=== PATIENT | male | born 1975 | race Caucasian/White ===

== ENCOUNTER 2016-05-27 23:17 | Emergency (ER) | payer MEDICARE, MEDICAID ==
[2016-05-27] MEDS ORDERED: CODEINE PHOSPHATE/GUAIFENESIN 5 ML UDC PO ONE (23:25)
[2016-05-27] MEDS ORDERED: ALBUTEROL SULFATE/IPRATROPIUM 3 ML NEBU IH ONE ×2 (23:26→23:42)
[2016-05-27] MEDS ORDERED: CODEINE PHOSPHATE/GUAIFENESIN 5 ML UDC ONE (23:42)
--- OUTSIDE RECORDS SUMMARY | 2016-05-28 00:18 | XMS REPORT | Summary of Care ---
:1975 Author Organization [facility] Care Team Providers Name Role Phone No Family Phy, Physician Primary Care Physician Unavailable Encounter 10/22/15 - 10/28/15 [facility] [address] [facility] Shelby [place]ountain, [place] [address]- Discharge Disposition: Home Attending Physician: Amor Calle Admitting Physician: Iza LANDERS, Zenon Huston Referring Physician: Self, Referral Vital Signs Most recent to oldest 1 2 3 [Reference Range]: Orientation Oriented to Person, Place, Time Oriented to Person, Place, Time Oriented to Person, Place, Time (10/25/15 12:10 PM) (10/25/15 9:41 AM) (10/22/15 2:53 PM) Level of Consciousness Alert (10/22/15 10:43 AM) Sleep Quality Sleeping quielty with easy respirations Sleeping quielty with easy respirations Sleeping quielty with easy respirations (10/25/15 3:09 AM) (10/23/15 4:49 AM) (10/22/15 8:19 PM) Sleep, Number of Hrs 6 8 2 (10/25/15 3:09 AM) (10/23/15 4:49 AM) (10/22/15 8:19 PM) Sleep Comment reports that he slept well reports he thought he slept but was told he did not none (10/24/15 1:30 PM) (10/23/15 12:50 PM) (10/23/15 4:49 AM) Respiratory Rate 20 brpm 20 brpm 20 brpm [12-30 brpm] (10/27/15 9:55 PM) (10/27/15 9:46 PM) (10/27/15 4:22 PM) Blood Pressure 121/80mm hg 139/88mm hg 127/83mm hg [(reference range (10/27/15 4:22 PM) (10/27/15 12:08 PM) (10/26/15 9:32 AM) unavailable)/61-99 mm hg] Temperature F 97.9 degF 98.3 degF 99.1 degF [97.7-99.9 degF] (10/27/15 4:22 PM) (10/25/15 4:49 PM) (10/22/15 2:53 PM) Height 175.3 cm 175.3 cm 175.3 cm (10/22/15 2:53 PM) (10/22/15 10:43 AM) (10/22/15 10:35 AM) Weight 113.636 kg 113.636 kg 113.636 kg (10/22/15 2:53 PM) (10/22/15 10:43 AM) (10/22/15 10:35 AM) Problem List Condition Effective Dates Status Health Status Informant Arthritis(Confirmed) Active Allergies, Adverse Reactions, Alerts Substance Reaction Severity Status propofol Nausea and vomiting Active Medications Ambien 10 mg, PO, HS (At Bedtime), PRN PRN Reasons Stated in Comments Start Date: 10/22/15 Status: Orderedbenztropine 1 mg oral tablet 1 mg=1 Tab, PO, [id number], PRN PRN EPS Start Date: 03/16/15 Stop Date: 10/22/15 Status: CompletedbuPROPion 150 mg/24 hours (XL) oral tablet, extended release 150 mg=1 Tab, PO, Daily (Once Daily), X 30 day(s), # 30 Tab, Pharmacy: [facility] [id number] Start Date: 10/28/15 Stop Date: 11/27/15 Status: OrderedbuPROPion 300 mg/24 hours (XL) oral tablet, extended release 300 mg=1 Tab, PO, Daily (Once Daily) Start Date: 03/16/15 Stop Date: 10/22/15 Status: Completeddocusate sodium 100 mg oral capsule 100 mg=1 Cap, PO, BID (Twice Daily), PRN PRN as needed for constipation Start Date: 03/16/15 Stop Date: 10/22/15 Status: CompletedInvega Sustenna 156 mg/mL intramuscular suspension, extended release 156 mg, IM, [id number], Patient received on 10/26/2015. Next dose 30 days from this date., # 1 Cassette, Pharmacy: [facility] [id number] Start Date: 10/28/15 Status: OrderedLORazepam 1 mg oral tablet 1 mg=1 Tab, PO, QID (Four Times Daily), PRN PRN as needed for anxiety Start Date: 03/16/15 Status: Orderedmirtazapine 15 mg oral tablet 7.5 mg=0.5 Tab, PO, HS (At Bedtime), X 30 day(s), # 15 Tab, Pharmacy: [facility] [id number] Start Date: 10/28/15 Stop Date: 11/27/15 Status: Orderedmirtazapine 15 mg oral tablet 15 mg=1 Tab, PO, HS (At Bedtime) Start Date: 03/16/15 Stop Date: 10/22/15 Status: Completedpramipexole 1.5 mg oral tablet 1.5 mg=1 Tab, PO, HS (At Bedtime) Start Date: 03/16/15 Stop Date: 10/22/15 Status: CompletedSystane ophthalmic solution 1 Drops, Eyes-Both, TID (Three Times Daily) Start Date: 03/16/15 Stop Date: 10/22/15 Status: CompletedTylenol 325 mg oral tablet 650 mg=2 Tab, PO, [id number], PRN PRN Mild Pain and/or Fever Start Date: 03/16/15 Stop Date: 10/22/15 Status: Completed Results GENERAL CHEMISTRIES Most recent to oldest [Reference Range]: 1 Lot Number [id number] *NA* (10/24/15 11:42 AM) ENDOCRINE CHEMISTRIES Most recent to oldest [Reference Range]: 1 S-TSH [0.45-4.50 International Units/L] 3.44 International Units/L (10/23/15 11:28 AM) DRUGS OF ABUSE Most recent to oldest [Reference Range]: 1 THC [Negative] Negative (10/22/15 10:54 AM) Phencyclidine [Negative] Negative (10/22/15 10:54 AM) Cocaine [Negative] Negative (10/22/15 10:54 AM) Opiates [Negative] Negative (10/22/15 10:54 AM) Amphetamine Screen [Negative] Negative (10/22/15 10:54 AM) Benzodiazepine Screen [Negative] Negative (10/22/15 10:54 AM) Barbiturates [Negative] Negative (10/22/15 10:54 AM) pH - BENJAMIN [5.0-8.0] 7.0 (10/22/15 10:54 AM) Specific [place] - BENJAMIN [1.000-1.030] 1.016 (10/22/15 10:54 AM) SKIN TEST Most recent to oldest [Reference Range]: 1 Date/Time Inject 10/23@11:42 *NA* (10/24/15 11:42 AM) Date/Time Read 7.@14:55 *NA* (10/24/15 11:42 AM) Site/Tech ID left arm/pmb *NA* (10/24/15 11:42 AM) Tech - TB cks *NA* (10/24/15 11:42 AM) Induration TB 0 mm *NA* (10/24/15 11:42 AM) Immunizations No data available for this section Procedures Procedure Date Related Diagnosis Body Site Lip Social History Social History Type Response Alcohol Current, 1-2 times per year Substance Abuse Never Smoking Status Former smoker1 1states he quit smoking 6 months ago. Assessment and Plan Extracted from: Title:Psychiatric screening exam Author:Walter Alonso Date:10/22/15 Impression and Plan Diagnosis bipolar Plan Condition: Unchanged. Disposition: Medically cleared, Discharged: to home. Patient was given the following educational materials: see PSA notes. Follow up with: Primary Care Physician, In: as needed. Counseled: Patient, Regarding diagnosis, Regarding diagnostic results, Regarding treatment plan, Patient indicated understanding of instructions.
--- OUTSIDE RECORDS SUMMARY | 2016-05-28 00:18 | XMS REPORT | Continuity of Care Document ---
:1975 Author Organization [facility] ([facility]) Address [address] [place] [address] Phone [phone] Care Team Providers Name Role Phone Nuria Hodges Primary Care Provider [phone] Source Comments This disclosure is being made pursuant to the Care Everywhere program, applicable federal and state laws, and may not contain all informaitonavailable regarding this patient.[facility] ([facility]) Active Allergies and Adverse Reactions Allergen Noted Date Severity Reactions Comments Paliperidone 08/19/2013 OTHER Propofol 08/19/2013 Nausea & Vomiting Risperidone 08/19/2013 Nausea & Vomiting Current Medications Prescription Sig. Disp. Refills Start Date End Date Status LORazepam 0.5 mg Take 1 Tab by mouth 2 1 Tab 0 01/02/2014 Active tablet times daily as needed. Indications: Agitation LORazepam 2 mg Take 1 Tab by mouth 1 Tab 0 01/02/2014 Active tablet at bedtime as needed. Indications: Agitation nicotine 2 mg gum Take 1 Each by mouth 110 Each 5 01/02/2014 Active every 2 hours as needed for Smoking cessation. Chew gum slowly until it tingles, then park it between the cheek and gum. When tingle disappears, repeat process until most of thetingle disappears. Indications: NICOTINE WITHDRAWAL SYMPTOMS ALPRAZolam 2 mg Take 2 mg by mouth at Active tablet bedtime as needed. traZODone 100 mg Take 100 mg by mouth Active tablet at bedtime. pramipexole 1.5 mg Take 1.5 mg by mouth Active tablet 3 times daily. risperiDONE inject 37.5 mg Active microspheres intramuscularly every (RisperDAL Consta) 14 days. 37.5 mg/2 mL injection omeprazole 20 mg Take 20 mg by mouth Active enteric coated daily. capsule naproxen 500 mg Take 1 tablet (500 mg 30 tablet 0 04/15/2016 Active tablet total) by mouth every 12 hours. lidocaine 2 % jelly Apply topically 2 30 mL 0 04/15/2016 Active times daily as needed. Active Problems Problem Noted Date Tooth pain 04/15/2016 Umbilical hernia 01/05/2014 Overview: Reducible Upper respiratory infection 01/02/2014 Antisocial behavior 11/18/2013 Polysubstance use disorder, severe 11/18/2013 Hip pain, chronic 07/08/2013 Right knee pain 05/13/2013 Overview: Also has left knee pain after falling MIKE (obstructive sleep apnea) 05/13/2013 Hernia 05/13/2013 Parent-child relational problem 03/27/2013 Noncompliance with medications 11/28/2011 Paranoid schizophrenia 08/18/2011 Anxiety 06/12/2011 Heart burn 06/12/2011 Obesity 06/12/2011 Other enthesopathy of ankle and tarsus 08/01/2001 Resolved Problems Problem Noted Date Resolved Date Nausea 12/13/2013 01/05/2014 Schizophrenia 11/28/2011 03/27/2013 Psychiatric disorder 06/12/2011 03/27/2013 JOINT PAIN-L/LEG 08/01/2001 05/13/2013 Most Recent Encounters Date Type Specialty Providers Description 04/26/2016 Telephone Emergency Medicine Miles, Chief Comp: Darlin Mcgill RN Follow-up 04/15/2016 Hospital Encounter Emergency Medicine Chari White MD Dx: Tooth pain (Primary Dx) Social History Tobacco Use Types Packs/Day Years Used Date Former Smoker Cigarettes, Pipe, Cigars 0.25 0.5 Quit: 2013 Smokeless Tobacco: Never Used Tobacco Cessation:Ready to Quit: Yes Comments: Alcohol Use Drinks/Week oz/Week Comments No Last Filed Vital Signs Vital Sign Reading Time Taken Blood Pressure 125/92 04/15/2016 5:42 PM [employer] Pulse 104 04/15/2016 5:42 PM [employer] Temperature 36.9 C (98.4 F) 04/15/2016 5:42 PM [employer] Respiratory Rate 20 04/15/2016 5:42 PM [employer] Height 1.765 m (5' 9.49") 11/18/2013 12:32 AM CDT Weight 122.879 kg (270 lb 14.4 oz) 04/08/2014 8:43 AM [employer] Body Mass Index 39.44 04/08/2014 8:43 AM [employer] Oxygen Saturation 95% 04/15/2016 5:42 PM [employer] Plan of Care Health Maintenance Due Date Last Done Comments Hepatitis B Vaccine (1 of 3 - Primary Series) 1975 Tdap Vaccine 1985 MMR Vaccine 1992 Td Vaccine 1992 Influenza Vaccine: Seasonal (#1) 11/01/2015 Lipid Disorder Screening 05/13/2018 05/13/2013 Results from Last 3 Months Not on file
--- OUTSIDE RECORDS SUMMARY | 2016-05-28 00:19 | XMS REPORT | Summary of Care ---
:1975 Author Organization [facility] Care Team Providers Name Role Phone No Family Phy, Physician Primary Care Physician Unavailable Encounter 01/26/16 - 01/26/16 [facility] [address] [place] [address] Pacheco Kent , Dir. Lab: [phone] [place] [address]- Discharge Disposition: Home Attending Physician: Benjamin Wang DO Admitting Physician: Albina Rivera, Physician Referring Physician: Self, Referral Vital Signs Most recent to oldest [Reference 1 2 Range]: Orientation Oriented to Person, Place, Time (01/26/16 6:19 PM) Level of Consciousness Alert (01/26/16 6:19 PM) Respiratory Rate [12-30 brpm] 15 brpm 15 brpm (01/26/16 6:19 PM) (01/26/16 6:02 PM) Blood Pressure [(reference range 141/99mm hg 141/99mm hg unavailable)/61-99 mm hg] (01/26/16 6:19 PM) (01/26/16 6:02 PM) Temperature F [97.7-99.9 degF] 98.3 degF 98.3 degF (01/26/16 6:19 PM) (01/26/16 6:02 PM) Height 175.3 cm 175.3 cm (01/26/16 6:19 PM) (01/26/16 6:02 PM) Weight 120.455 kg 120.455 kg (01/26/16 6:19 PM) (01/26/16 6:02 PM) Problem List Condition Effective Dates Status Health Status Informant Arthritis(Confirmed) Active Allergies, Adverse Reactions, Alerts Substance Reaction Severity Status propofol Nausea and vomiting Active Medications Ambien 10 mg, PO, HS (At Bedtime), PRN PRN Reasons Stated in Comments Start Date: 10/22/15 Stop Date: 01/26/16 Status: CompletedAmbien 10 mg oral tablet 10 mg=1 Tab, PO, HS (At Bedtime) Start Date: 01/26/16 Status: Orderedbenztropine 1 mg oral tablet 1 mg=1 Tab, PO, [id number], PRN PRN EPS Start Date: 03/16/15 Stop Date: 10/22/15 Status: CompletedbuPROPion 150 mg/24 hours (XL) oral tablet, extended release 150 mg=1 Tab, PO, Daily (Once Daily), X 30 day(s), # 30 Tab, Pharmacy: [facility] [id number] Start Date: 10/28/15 Stop Date: 11/27/15 Status: CompletedbuPROPion 300 mg/24 hours (XL) oral tablet, extended release 300 mg=1 Tab, PO, Daily (Once Daily) Start Date: 03/16/15 Stop Date: 10/22/15 Status: Completeddocusate sodium 100 mg oral capsule 100 mg=1 Cap, PO, BID (Twice Daily), PRN PRN as needed for constipation Start Date: 03/16/15 Stop Date: 10/22/15 Status: CompletedInvega Sustenna 156 mg/mL intramuscular suspension, extended release 156 mg, IM, [id number], Patient received on 10/26/2015. Next dose 30 days from this date., # 1 Cassette, Pharmacy: [facility] [id number] Start Date: 10/28/15 Stop Date: 01/26/16 Status: CompletedLORazepam 1 mg oral tablet 1 mg=1 Tab, PO, QID (Four Times Daily), PRN PRN as needed for anxiety Start Date: 03/16/15 Stop Date: 01/26/16 Status: CompletedLORazepam 1 mg oral tablet 1 mg=1 Tab, PO, QID (Four Times Daily), PRN PRN as needed for anxiety Start Date: 01/26/16 Status: Orderedmirtazapine 15 mg oral tablet 7.5 mg=0.5 Tab, PO, HS (At Bedtime), X 30 day(s), # 15 Tab, Pharmacy: [facility] [id number] Start Date: 10/28/15 Stop Date: 11/27/15 Status: Completedmirtazapine 15 mg oral tablet 15 mg=1 Tab, PO, HS (At Bedtime) Start Date: 03/16/15 Stop Date: 10/22/15 Status: CompletedPercocet (5-325) 1-2 tab, PO, [id number], PRN PRN Moderate Pain Start Date: 01/26/16 Status: Orderedpramipexole 1.5 mg oral tablet 1.5 mg=1 Tab, PO, HS (At Bedtime) Start Date: 03/16/15 Stop Date: 10/22/15 Status: CompletedSystane ophthalmic solution 1 Drops, Eyes-Both, TID (Three Times Daily) Start Date: 03/16/15 Stop Date: 10/22/15 Status: CompletedTylenol 325 mg oral tablet 650 mg=2 Tab, PO, [id number], PRN PRN Mild Pain and/or Fever Start Date: 03/16/15 Stop Date: 10/22/15 Status: Completed Results BASIC CHEMISTRIES Most recent to oldest [Reference Range]: 1 Sodium [134-144 mmol/L] 139 mmol/L (01/26/16 7:30 PM) Potassium [3.5-5.2 mmol/L] 4.1 mmol/L (01/26/16 7:30 PM) Chloride [97-108 mmol/L] 99 mmol/L (01/26/16 7:30 PM) CO2 [18-29 mmol/L] 26 mmol/L (01/26/16 7:30 PM) AGAP [5-19 mmol/L] 14 mmol/L (01/26/16 7:30 PM) Gluc [65-99 mg/dL] 119 mg/dL *HI* (01/26/16 7:30 PM) BUN [6-24 mg/dL] 11 mg/dL (01/26/16 7:30 PM) Creatinine [0.76-1.27 mg/dL] 0.86 mg/dL (01/26/16 7:30 PM) eGFR 104 mL/min/1.73 m2 *NA* (01/26/16 7:30 PM) eGFR Amer 126 mL/min/1.73 m2 *NA* (01/26/16 7:30 PM) Bun/Crea [6-20 Ratio] 13 Ratio (01/26/16 7:30 PM) Calc Osmo [273-304] 278 (01/26/16 7:30 PM) Calcium [8.7-10.2 mg/dL] 9.1 mg/dL (01/26/16 7:30 PM) GENERAL CHEMISTRIES Most recent to oldest [Reference Range]: 1 ALT [0-44 International Units/L] 34 International Units/L (01/26/16 7:30 PM) AST [0-40 International Units/L] 22 International Units/L (01/26/16 7:30 PM) ALP [39-117 Units/L] 78 Units/L (01/26/16 7:30 PM) Bili Total [0.0-1.2 mg/dL] 0.2 mg/dL (01/26/16 7:30 PM) Total Protein [6.0-8.5 gm/dL] 7.1 gm/dL (01/26/16 7:30 PM) Albumin [3.5-5.5 gm/dL] 4.2 gm/dL (01/26/16 7:30 PM) Globulin [2.1-4.0 gm/dL] 2.9 gm/dL (01/26/16 7:30 PM) Alb/Glob 1.4 *NA* (01/26/16 7:30 PM) Amylase Level [28-100 Units/L] 60 Units/L (01/26/16 7:30 PM) Lactic Acid [0.0-2.0 mmol/L] 2.0 mmol/L (01/26/16 7:30 PM) Lipase Level [13-60 Units/L] 45 Units/L (01/26/16 7:30 PM) HEMOGRAM Most recent to oldest [Reference Range]: 1 WBC [4.80-10.80 thous/uL] 8.73 thous/uL (01/26/16 7:30 PM) RBC [4.70-6.10 mill/uL] 4.88 mill/uL (01/26/16 7:30 PM) Hgb [14.0-18.0 gm/dL] 15.8 gm/dL (01/26/16 7:30 PM) Hct [42.0-52.0 %] 44.0 % (01/26/16 7:30 PM) MCV [83.0-97.0 fl] 90.2 fl (01/26/16 7:30 PM) MCH [27.0-31.0 pg] 32.4 pg *HI* (01/26/16 7:30 PM) MCHC [32.3-36.5 gm/dL] 35.9 gm/dL (01/26/16 7:30 PM) Platelet [130-450 thous/uL] 300 thous/uL (01/26/16 7:30 PM) MPV [9.4-12.4 fl] 9.3 fl *LOW* (01/26/16 7:30 PM) RDW-CV [11.5-15.5 %] 12.2 % (01/26/16 7:30 PM) AUTOMATED DIFF Most recent to oldest [Reference Range]: 1 Neut % 65.4 % *NA* (01/26/16 7:30 PM) Lymph % 21.9 % *NA* (01/26/16 7:30 PM) [place] % 9.9 % *NA* (01/26/16 7:30 PM) Eos % 1.6 % *NA* (01/26/16 7:30 PM) Baso % 0.6 % *NA* (01/26/16 7:30 PM) Neut # [1.50-7.50 thous/uL] 5.72 thous/uL (01/26/16 7:30 PM) Lymph # [1.10-3.00 thous/uL] 1.91 thous/uL (01/26/16 7:30 PM) [place] # [0.10-0.75 thous/uL] 0.86 thous/uL *HI* (01/26/16 7:30 PM) Eos # [0.00-0.50 thous/uL] 0.14 thous/uL (01/26/16 7:30 PM) Baso # [0.00-0.10 thous/uL] 0.05 thous/uL (01/26/16 7:30 PM) MANUAL DIFF Most recent to oldest [Reference Range]: 1 IG Pc 0.6 % *NA* (01/26/16 7:30 PM) IG Abs [0.00-0.10 thous/uL] 0.05 thous/uL (01/26/16 7:30 PM) URINALYSIS AUTOMATED Most recent to oldest [Reference Range]: 1 U Color YELLOW *NA* (01/26/16 7:56 PM) U Clarity CLEAR *NA* (01/26/16 7:56 PM) U Spec Grav [1.005-1.030] 1.015 (01/26/16 7:56 PM) U pH [5.0-8.0] 6.5 (01/26/16 7:56 PM) U Gluc [NEGATIVE] NEGATIVE (01/26/16 7:56 PM) U Ketones [NEGATIVE] NEGATIVE (01/26/16 7:56 PM) U Bili [NEGATIVE] NEGATIVE (01/26/16 7:56 PM) U Urobilinogen [0.2 EU/dL] 0.2 EU/dL (01/26/16 7:56 PM) U Protein [NEGATIVE] NEGATIVE (01/26/16 7:56 PM) U Blood [NEGATIVE] NEGATIVE (01/26/16 7:56 PM) U Leuk Est [NEGATIVE] NEGATIVE (01/26/16 7:56 PM) U Nitrite [NEGATIVE] NEGATIVE (01/26/16 7:56 PM) U Add Cult? Cult not needed (01/26/16 7:56 PM) Immunizations No data available for this section Procedures No data available for this section Social History Social History Type Response Alcohol Current, 1-2 times per year Substance Abuse Never Smoking Status Former smoker1 1states he quit smoking 6 months ago. 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 Disposition: Discharged: Time 01/26/2016 21:10:00, to home. Patient was given the following educational materials: Abdominal Pain, Adult, [id number]. Follow up with: Return to Emergency Department (if symptoms worsen), Primary Care Physician, In: 2 day(s). Counseled: Patient, Family, Regarding diagnosis, Regarding diagnostic results, Regarding treatment plan, Patient indicated understanding of instructions. Notes: I have reviewed and agree with the documentation done by the ED Scribe, Discussed with patient about the possibility of abdominal pain being appendicitis. Patient verbalized understanding and said she would return within 12-24 hours if the pain worsened or if a fever started..
--- OUTSIDE RECORDS SUMMARY | 2016-05-28 00:19 | XMS REPORT | Summary of Care ---
:1975 Author Organization [facility] Care Team Providers Name Role Phone No Family Phy, Physician Primary Care Physician Unavailable Encounter 07/20/15 - 07/20/15 [facility] [address] [facility] [address], [place] [address]- Discharge Disposition: Patient Left Without Being Seen Attending Physician: ECC Physician, Physician Admitting Physician: Albina Family Phy, Physician Referring Physician: Self, Referral Vital Signs Most recent to oldest [Reference Range]: 1 Respiratory Rate [12-30 brpm] 20 brpm (07/20/15 1:36 PM) Blood Pressure [(reference range unavailable)/61-99 mm hg] 138/88mm hg (07/20/15 1:36 PM) Temperature F [97.7-99.9 degF] 96.9 degF *LOW* (07/20/15 1:36 PM) Height 175.3 cm (07/20/15 1:36 PM) Weight 110.909 kg (07/20/15 1:36 PM) Problem List Condition Effective Dates Status Health Status Informant Arthritis(Confirmed) Active Allergies, Adverse Reactions, Alerts No Known Allergies Medications benztropine 1 mg oral tablet 1 mg=1 Tab, PO, [id number], PRN PRN EPS Start Date: 03/16/15 Status: OrderedbuPROPion 300 mg/24 hours (XL) oral tablet, extended release 300 mg=1 Tab, PO, Daily (Once Daily) Start Date: 03/16/15 Status: Ordereddocusate sodium 100 mg oral capsule 100 mg=1 Cap, PO, BID (Twice Daily), PRN PRN as needed for constipation Start Date: 03/16/15 Status: OrderedLORazepam 1 mg oral tablet 1 mg=1 Tab, PO, TID (Three Times Daily), PRN PRN as needed for anxiety Start Date: 03/16/15 Status: Orderedmirtazapine 15 mg oral tablet 15 mg=1 Tab, PO, HS (At Bedtime) Start Date: 03/16/15 Status: Orderedpramipexole 1.5 mg oral tablet 1.5 mg=1 Tab, PO, HS (At Bedtime) Start Date: 03/16/15 Status: OrderedSystane ophthalmic solution 1 Drops, Eyes-Both, TID (Three Times Daily) Start Date: 03/16/15 Status: OrderedTylenol 325 mg oral tablet 650 mg=2 Tab, PO, [id number], PRN PRN Mild Pain and/or Fever Start Date: 03/16/15 Status: Ordered Results DRUGS OF ABUSE Most recent to oldest [Reference Range]: 1 THC [<=50 ng/mL] <50 ng/mL (07/20/15 2:35 PM) Phencyclidine [Not Detected] Not Detected (07/20/15 2:35 PM) Cocaine [Not Detected] Not Detected (07/20/15 2:35 PM) Opiates [Not Detected] Not Detected (07/20/15 2:35 PM) Amphetamine Screen [Not Detected] Not Detected (07/20/15 2:35 PM) Benzodiazepine Screen [Not Detected] Not Detected (07/20/15 2:35 PM) Barbiturates [Not Detected] Not Detected (07/20/15 2:35 PM) pH - BENJAMIN [4.5-8.0] 7.0 (07/20/15 2:35 PM) Specific [place] - BENJAMIN [1.005-1.030] 1.006 (07/20/15 2:35 PM) Immunizations No data available for this section Procedures No data available for this section Social History Social History Type Response Alcohol Current, 1-2 times per year Substance Abuse Never Smoking Status Former smoker1 1states he quit smoking 6 months ago. Assessment and Plan No data available for this section
--- OUTSIDE RECORDS SUMMARY | 2016-05-28 00:19 | XMS REPORT | Summary of Care ---
:1975 Author Organization [facility] Care Team Providers Name Role Phone No Family Phy, Physician Primary Care Physician Unavailable Encounter 03/16/15 - 03/16/15 [facility] [address] [facility] Pacheco Kent , Dir. Lab: [phone] [place] [address]- Discharge Disposition: Home Attending Physician: Yenny Treviño MD Admitting Physician: Albina Family Phy, Physician Referring Physician: Yenny Treviño MD Vital Signs Most recent to oldest 1 2 3 [Reference Range]: Respiratory Rate [12-30 16 brpm 16 brpm 16 brpm brpm] (03/16/15 8:28 PM) (03/16/15 7:05 PM) (03/16/15 5:41 PM) Blood Pressure [(reference 128/84mm hg 131/86mm hg 131/86mm hg range unavailable)/61-99 mm (03/16/15 8:28 PM) (03/16/15 7:05 PM) (03/16/15 5:41 PM) hg] Temperature F [97.7-99.9 98.1 degF 98.1 degF degF] (03/16/15 7:05 PM) (03/16/15 5:41 PM) Height 175.3 cm 175.3 cm (03/16/15 7:05 PM) (03/16/15 5:41 PM) Weight 113.636 kg 113.636 kg (03/16/15 7:05 PM) (03/16/15 5:41 PM) Problem List Condition Effective Dates Status Health Status Informant Arthritis(Confirmed) Active Allergies, Adverse Reactions, Alerts No Known Allergies Medications benztropine 1 mg oral tablet 1 mg=1 Tab, PO, [id number], PRN PRN EPS Start Date: 03/16/15 Status: [...] mg oral tablet 650 mg=2 Tab, PO, [id number], PRN PRN Mild Pain and/or Fever Start Date: 03/16/15 Status: Ordered Results No data available for this section Immunizations No data available for this section Procedures No data available for this section Social History Social History Type Response Alcohol Current, 1-2 times per year Substance Abuse Never Smoking Status Former smoker1 1states he quit smoking 6 months ago. Assessment and Plan No data available for this section
--- OUTSIDE RECORDS SUMMARY | 2016-05-28 00:19 | XMS REPORT | Summary of Care ---
:1975 Author Organization [facility] Care Team Providers Name Role Phone No Family Phy, Physician Primary Care Physician Unavailable Encounter 01/26/16 - 01/26/16 [facility] [address] [facility] [place] M.D. , [place] [address]- Discharge Disposition: Home Admitting Physician: Albina Family Phy, Physician Vital Signs No data available for this section Problem List Condition Effective Dates Status Health [...] mg oral tablet 1 mg=1 Tab, PO, A7Pfoel, PRN PRN EPS Start Date: 03/16/15 Stop Date: 10/22/15 Status: CompletedbuPROPion 150 mg/24 hours (XL) oral tablet, extended release 150 mg=1 Tab, PO, Daily (Once Daily), X 30 day(s), # 30 Tab, Pharmacy: [facility] [id number] Start Date: 10/28/15 Stop Date: 11/27/15 Status: CompletedbuPROPion 300 mg/24 hours (XL) oral tablet, extended release 300 mg=1 Tab, PO, Daily (Once Daily) Start Date: 03/16/15 Stop Date: 10/22/15 Status: Completeddocusate sodium 100 mg oral capsule 100 mg=1 Cap, PO, BID (Twice Daily), PRN PRN as needed for constipation Start Date: 03/16/15 Stop Date: 10/22/15 Status: CompletedBuckpavithra Sustenna 156 mg/mL intramuscular suspension, extended release 156 mg, IM, [id number], Patient received on 10/26/2015. Next dose 30 days from this date., # 1 Cassette, Pharmacy: [id number] Start Date: 10/28/15 Stop Date: 01/26/16 Status: [...] X 30 day(s), # 15 Tab, Pharmacy: [id number] Start Date: 10/28/15 Stop Date: 11/27/15 Status: Completedmirtazapine 15 mg oral tablet 15 mg=1 Tab, PO, HS (At Bedtime) Start Date: 03/16/15 Stop Date: 10/22/15 Status: CompletedPercocet (5-325) 1-2 tab, PO, [id number], PRN PRN Moderate Pain Start Date: 01/26/16 Status: Orderedpramipexole 1.5 mg oral tablet 1.5 mg=1 Tab, PO, HS (At Bedtime) Start Date: 03/16/15 Stop Date: 10/22/15 Status: CompletedSystane ophthalmic solution 1 Drops, Eyes-Both, TID (Three Times Daily) Start Date: 03/16/15 Stop Date: 10/22/15 Status: CompletedTylenol 325 mg oral tablet 650 mg=2 Tab, PO, [id number], PRN PRN Mild Pain and/or Fever Start Date: 03/16/15 Stop Date: 10/22/15 Status: Completed Results No data available for this section Immunizations No data available for this section Procedures No data available for this section Social History Social History Type Response Alcohol Current, 1-2 times per year Substance Abuse Never Smoking Status Former smoker1 1states he quit smoking 6 months ago. Assessment and Plan No data available for this section
--- OUTSIDE RECORDS SUMMARY | 2016-05-28 00:20 | XMS REPORT | Summary of Care ---
:1975 Author Organization [facility] Address [address] [place] [address] Care Team Providers Name Role Phone Physician, Primary Care Primary Care Physician Unavailable Encounter Date(s): 05/03/16 - 05/03/16 [facility], [address] [place], [place] [address] Discharge Disposition: 01 Discharged to Home or Self Care Attending Physician: NIVIA Munoz Referring Physician: NIVIA Munoz Vital Signs Most recent to oldest [Reference Range]: 1 Peripheral Pulse Rate [60-100 bpm] 95 bpm (05/03/16 3:16 PM) SpO2 98 % (05/03/16 3:16 PM) SpO2 Location Right hand (05/03/16 3:16 PM) Blood Pressure [90-130/60-90 mmHg] 119/84mmHg (05/03/16 3:16 PM) Mean Arterial Pressure, Cuff 96 mmHg (05/03/16 3:16 PM) Most recent to oldest [Reference Range]: 1 Height/Length Measured 178 cm (05/03/16 3:16 PM) Weight Dosing 122.40 kg1 (05/03/16 3:17 PM) Weight Measured 122.4 kg (05/03/16 3:16 PM) BSA Measured 2.37 m2 (05/03/16 3:16 PM) Body Mass Index Measured 38.63 kg/m2 (05/03/16 3:16 PM) 1Result Comment: This result was because the dosing weight was either not entered or it is>30 days old. This result is based off: Weight Measured May 03, 2016 15:16:00 FLOW WORKER by Danielle Ralph Problem List Condition Effective Dates Status Health Status Informant Anxiety(Confirmed) Active Hip pain(Confirmed) Active Back pain(Confirmed) Active Back pain, chronic(Confirmed) Active Paranoid schizophrenia(Confirmed) Active Medication refill(Confirmed) Active Allergies, Adverse Reactions, Alerts Substance Reaction Severity Status propofol Severe Active Medications albuterol HFA 2 puff(s), 0 Refill(s), Start Date: 03/16/16 11:56:00 FLOW WORKER Start Date: 03/16/16 Stop Date: 04/05/16 Status: Discontinuedalbuterol HFA 2 puff(s), Inhale, QID, 0 Refill(s), Start Date: 04/05/16 15:21:00 FLOW WORKER Start Date: 04/05/16 Status: Orderedaloe vera topical gel Topical, BID, PRN skin care, 0 Refill(s), Start Date: 09/06/15 16:08:00 CDT Start Date: 09/06/15 Stop Date: 10/07/15 Status: CompletedAmbien 10 mg oral tablet 1 tab(s), Oral, HS, PRN for sleep, # 2 tab(s), 0 Refill(s), Start Date: 20:00:00 CDT Start Date: 11/21/15 Stop Date: 01/15/16 Status: CompletedAtivan 1 mg oral tablet 1 tab(s), Oral, TID, PRN for anxiety, X 2 days, # 5 tab(s), 0 Refill(s), Start Date: 01/15/16 16:08:00 CDT Start Date: 01/15/16 Stop Date: 01/17/16 Status: CompletedAtivan 1 mg oral tablet 1 tab(s), Oral, HS, # 3 tab(s), 0 Refill(s) Start Date: 07/09/13 Stop Date: 10/15/13 Status: DiscontinuedAtivan 1 mg oral tablet 1 tab(s), Oral, TID, PRN for anxiety, # 12 tab(s), 0 Refill(s), Start Date: 20:00:00 CDT Start Date: 11/21/15 Stop Date: 01/15/16 Status: CompletedAzithromycin 5 Day Dose Pack 250 mg oral tablet 1 packet(s), Oral, Per Package Label, as directed on package labeling, X 5 days , # 6 tab(s), 0 Refill(s), Start Date: 03/23/16 17:05:00 FLOW WORKER Special Instructions: as directed on package labeling Start Date: 03/23/16 Stop Date: 03/28/16 Status: CompletedbuPROPion 300 mg/24 hours (XL) oral tablet, extended release 1 tab(s), Oral, Daily, # 30 tab(s), 0 Refill(s), Start Date: 09/02/15 11:36:00 CDT Start Date: 09/02/15 Stop Date: 09/06/15 Status: Discontinueddoxylamine 25 mg oral tablet 1 tab(s), Oral, HS, PRN for sleep, X 3 days, # 3 tab(s), 0 Refill(s) Start Date: 08/05/13 Stop Date: 08/08/13 Status: CompletedFlexeril 10 mg oral tablet 1 tab(s), Oral, TID, X 10 days, # 30 tab(s), 0 Refill(s), Start Date: 03/14/16 21:21:00 FLOW WORKER Start Date: 03/14/16 Stop Date: 03/23/16 Status: Completedibuprofen 600 mg oral tablet 1 tab(s), Oral, TID, PRN for pain, # 30 tab(s), 0 Refill(s) Start Date: 09/14/13 Stop Date: 09/02/15 Status: Completedibuprofen 800 mg oral tablet 1 tab(s), Oral, TID, PRN for pain, # 30 tab(s), 0 Refill(s), Start Date: 20:01:00 FLOW WORKER Start Date: 03/20/16 Stop Date: 04/05/16 Status: Completedibuprofen 800 mg oral tablet 1 tab(s), Oral, TID, PRN for pain, # 30 tab(s), 0 Refill(s), Start Date: 13:47:11 FLOW WORKER, Pharmacy: [facility] [id number] Start Date: 04/05/16 Status: OrderedKlonoPIN 1 mg oral tablet 1 tab(s), Oral, TID, 0 Refill(s) Start Date: 07/09/13 Stop Date: 6/15/14 Status: DiscontinuedLORazepam 1 mg oral tablet 1 tab(s), Oral, QID, 0 Refill(s), Start Date: 09/02/15 11:35:00 CDT Start Date: 09/02/15 Stop Date: 01/15/16 Status: CompletedLORazepam 1 mg oral tablet 1 tab(s), Oral, BID, PRN for anxiety, max of 6 tabs a day. Last filled 12/18/2015 , 0 Refill(s), Start Date: 01/15/16 15:59:00 CDT Special Instructions: max of 6 tabs a day. Last filled 12/18/2015 Start Date: 01/15/16 Stop Date: 02/13/16 Status: CompletedLORazepam 1 mg oral tablet 1 tab(s), Oral, QID, May take additional 2 tablets daily as needed, max of 6 tabletes per day. last filled 12/18/2015, 0 Refill(s), Start Date: 01/15/16 15:59 :00 CDT Special Instructions: May take additional 2 tablets daily as needed, max of 6 tabletes per day. last filled 12/18/2015 Start Date: 01/15/16 Status: OrderedMirapex 1.5 mg oral tablet 1 tab(s), Oral, Daily, at 2000 every night, 0 Refill(s), Start Date: 09/02/15 11 :37:00 CDT Special Instructions: at 2000 every night Start Date: 09/02/15 Stop Date: 09/06/15 Status: Discontinuedmirtazapine 7.5 mg oral tablet 1 tab(s), Oral, HS, 0 Refill(s), Start Date: 09/02/15 11:36:00 CDT Start Date: 09/02/15 Stop Date: 09/06/15 Status: Discontinuedmorphine 15 mg oral tablet 1 tab(s), Oral, q4hr, PRN for pain, X 1 days, # 3 tab(s), 0 Refill(s), Start Date: 07/24/15 20:00:00 CDT Start Date: 07/24/15 Stop Date: 07/25/15 Status: Completedmorphine 15 mg oral tablet 1 tab(s), Oral, q4hr, PRN for pain, X 1 days, # 3 tab(s), 0 Refill(s), Start Date: 09/16/15 22:26:00 CDT Start Date: 09/16/15 Stop Date: 09/17/15 Status: CompletedParafon Forte DSC 500 mg oral tablet 1 tab(s), Oral, QID, # 40 tab(s), 1 Refill(s), Start Date: 03/16/16 12:20:00 FLOW WORKER , [facility] [id number] Start Date: 03/16/16 Stop Date: 04/05/16 Status: DiscontinuedpredniSONE 50 mg oral tablet 1 tab(s), Oral, Daily, Take in mornings with food or milk, # 7 tab(s), 0 Refill (s), Start Date: 03/14/16 21:21:00 FLOW WORKER Special Instructions: Take in mornings with food or milk Start Date: 03/14/16 Stop Date: 03/23/16 Status: CompletedPriLOSEC 20 mg oral delayed release capsule 1 cap(s), Oral, Daily, # 30 cap(s), 0 Refill(s) Start Date: 07/09/13 Stop Date: 09/02/15 Status: CompletedProAir HFA 90 mcg/inh inhalation aerosol 2 puff(s), Inhale, QID, PRN as needed for wheezing, # 9 gm, 0 Refill(s), Start Date: 03/31/16 23:37:00 FLOW WORKER Start Date: 03/31/16 Stop Date: 04/05/16 Status: DiscontinuedPromethazine with Codeine 6.25 mg-10 mg/5 mL oral syrup 5 mL, Oral, q4hr, PRN for cough, X 7 days, # 210 mL, 0 Refill(s), Start Date: 17:06:00 FLOW WORKER Start Date: 03/23/16 Stop Date: 03/30/16 Status: CompletedRisperDAL 0.5 mg oral tablet 1 tab(s), Oral, qPM, # 30 tab(s), 0 Refill(s), Start Date: 09/06/15 16:10:00 CDT , Pharmacy: [facility] [id number] Start Date: 09/06/15 Stop Date: 01/15/16 Status: CompletedrisperiDONE 3 mg oral tablet 1 tab(s), Oral, Daily, # 30 tab(s), 0 Refill(s), Start Date: 09/02/15 13:35:00 CDT Start Date: 09/02/15 Stop Date: 09/06/15 Status: DiscontinuedrisperiDONE 3 mg oral tablet 1 tab(s), Oral, Daily, # 30 tab(s), 0 Refill(s), Start Date: 09/02/15 13:45:00 CDT Start Date: 09/02/15 Stop Date: 09/06/15 Status: DiscontinuedSaphris 10 mg sublingual tablet 1 tab(s), SL, BID, 0 Refill(s) Start Date: 10/06/13 Stop Date: 10/15/13 Status: DiscontinuedSudafed 30 mg oral tablet 1 tab(s), Oral, q4hr, X 5 days, # 30 tab(s), 0 Refill(s), Start Date: 03/23/16 17:05:00 FLOW WORKER Start Date: 03/23/16 Stop Date: 03/28/16 Status: CompletedTessalon 200 mg oral capsule 1 cap(s), Oral, TID, # 21 cap(s), 0 Refill(s), Start Date: 03/20/16 20:02:00 FLOW WORKER Start Date: 03/20/16 Stop Date: 04/05/16 Status: DiscontinuedtraMADol 50 mg oral tablet 1 tab(s), Oral, Daily, # 7 tab(s), 0 Refill(s), Start Date: 04/12/16 16:27:00 FLOW WORKER, Pharmacy: [facility] [id number] Start Date: 04/12/16 Stop Date: 04/24/16 Status: CompletedtraMADol 50 mg oral tablet 1 tab(s), Oral, Daily, # 14 tab(s), 0 Refill(s), Start Date: 04/24/16 9:12:27 FLOW WORKER, Pharmacy: [facility] [id number] Start Date: 04/24/16 Status: OrderedtraZODone 100 mg oral tablet 1 tab(s), Oral, TID, # 90 tab(s), 0 Refill(s) Start Date: 07/09/13 Stop Date: 09/14/13 Status: DiscontinuedtraZODone 50 mg oral tablet 1 tab(s), Oral, HS, at 2000 every night, # 30 tab(s), 0 Refill(s), Start Date: 09/02/15 11:38:00 CDT Special Instructions: at 2000 every night Start Date: 09/02/15 Stop Date: 01/15/16 Status: CompletedTylenol with Codeine #3 oral tablet 1 tab(s), Oral, q4hr, PRN cough and congestion, Do not work or drive with this medication, X 7 days, # 8 tab(s), 0 Refill(s), Start Date: 03/31/16 23:19:00 FLOW WORKER Special Instructions: Do not work or drive with this medication Start Date: 03/31/16 Stop Date: 04/05/16 Status: DiscontinuedTylenol with Codeine #3 oral tablet 1 tab(s), Oral, q4hr, PRN for pain, # 60 tab(s), 1 Refill(s), Start Date: 13:47:00 FLOW WORKER, [facility] [id number] Start Date: 04/05/16 Stop Date: 04/24/16 Status: CompletedTylenol with Codeine #3 oral tablet 1 tab(s), Oral, q6hr, PRN for pain, # 120 tab(s), 0 Refill(s), Start Date: 04/24 9:11:00 FLOW WORKER, [facility] [id number] Start Date: 04/24/16 Stop Date: 05/31/16 Status: OrderedValium 2 mg oral tablet 1 tab(s), Oral, HS, 0 Refill(s) Start Date: 07/09/13 Stop Date: 09/14/13 Status: DiscontinuedXanax 0.25 mg oral tablet 1 tab(s), Oral, HS, PRN as needed for anxiety, # 2 tab(s), 0 Refill(s) Start Date: 10/15/13 Stop Date: 09/02/15 Status: CompletedZantac 300 oral tablet 1 tab(s), Oral, HS, # 30 tab(s), 0 Refill(s) Start Date: 07/20/13 Stop Date: 08/20/13 Status: Completedzolpidem 10 mg oral tablet 1 tab(s), Oral, HS, PRN for sleep, Start Date: 10/07/15 15:21:00 CDT Start Date: 10/07/15 Status: Ordered Results No data available for this section Immunizations No data available for this section Procedures Procedure Date Related Diagnosis Body Site Manipulation of deviated nasal septum Social History No data available for this section Assessment and Plan No data available for this section
--- OUTSIDE RECORDS SUMMARY | 2016-05-28 00:20 | XMS REPORT | Summary of Care ---
:1975 Author Organization [facility] Address [address] [place] [address]- Care Team Providers Name Role Phone Physician, Primary Care Primary Care Physician Unavailable Encounter Date(s): 05/03/16 - 05/03/[address] [address]- [facility] Discharge Diagnosis: Noncompliance with medication treatment due to abuse of medication Discharge Disposition: Discharged to Home or Self Care Attending Physician: Sun Plascencia DO Admitting Physician: Sun Plascencia DO Vital Signs Most recent to oldest [Reference Range]: 1 Temperature Temporal Artery [36.0-38.0 DegC] 37.6 DegC (05/03/16 4:40 PM) Heart Rate Monitored [60-100 bpm] 98 bpm (05/03/16 4:40 PM) Respiratory Rate [12-20 br/min] 18 br/min (05/03/16 4:40 PM) SpO2 97 % (05/03/16 4:40 PM) Blood Pressure [90-130/60-90 mmHg] 126/77mmHg (05/03/16 4:40 PM) Most recent to oldest [Reference Range]: 1 Weight Dosing 122.40 kg1 (05/03/16 4:44 PM) Weight Measured 122.4 kg (05/03/16 4:40 PM) 1Result Comment: This result was because the dosing weight was either not entered or it is>30 days old. This result is based off: Weight Measured May 03, 2016 16:40:00 PERFORMANCE IMPROVEMENT MANAGER by Santa Pearson RN Problem List Condition Effective Dates Status Health Status Informant Anxiety(Confirmed) Active Hip pain(Confirmed) Active Back pain(Confirmed) Active Back pain, chronic(Confirmed) Active Paranoid schizophrenia(Confirmed) Active Medication refill(Confirmed) Active Allergies, Adverse Reactions, Alerts Substance Reaction Severity Status propofol Severe Active Medications albuterol HFA 2 puff(s), 0 Refill(s), Start Date: 03/16/16 11:56:00 PERFORMANCE IMPROVEMENT MANAGER Start Date: 03/16/16 Stop Date: 04/05/16 Status: Discontinuedalbuterol HFA 2 puff(s), Inhale, QID, 0 Refill(s), Start Date: 04/05/16 15:21:00 PERFORMANCE IMPROVEMENT MANAGER Start Date: 04/05/16 Status: Orderedaloe vera topical [...] tab(s), 0 Refill(s), Start Date: 03/23/16 17:05:00 PERFORMANCE IMPROVEMENT MANAGER Special Instructions: as directed on package labeling [...] tab(s), 0 Refill(s), Start Date: 03/14/16 21:21:00 PERFORMANCE IMPROVEMENT MANAGER Start Date: 03/14/16 Stop Date: 03/23/16 Status: Completedibuprofen 600 mg oral tablet 1 tab(s), Oral, TID, PRN for pain, # 30 tab(s), 0 Refill(s) Start Date: 09/14/13 Stop Date: 09/02/15 Status: Completedibuprofen 800 mg oral tablet 1 tab(s), Oral, TID, PRN for pain, # 30 tab(s), 0 Refill(s), Start Date: 20:01:00 PERFORMANCE IMPROVEMENT MANAGER Start Date: 03/20/16 Stop Date: 04/05/16 Status: Completedibuprofen 800 mg oral tablet 1 tab(s), Oral, TID, PRN for pain, # 30 tab(s), 0 Refill(s), Start Date: 13:47:11 PERFORMANCE IMPROVEMENT MANAGER, Pharmacy: [facility] [id number] Start Date: 04/05/16 Status: OrderedKlonoPIN 1 mg oral tablet 1 tab(s), Oral, TID, 0 Refill(s) Start Date: 07/09/13 Stop Date: 09/14/13 Status: DiscontinuedLORazepam 1 mg oral tablet 1 [...] tab(s), 1 Refill(s), Start Date: 03/16/16 12:20:00 PERFORMANCE IMPROVEMENT MANAGER , Pharmacy: [facility] [id number] Start Date: 03/16/16 Stop Date: 04/05/16 Status: DiscontinuedpredniSONE 50 mg oral tablet 1 tab(s), Oral, Daily, Take in mornings with food or milk, # 7 tab(s), 0 Refill (s), Start Date: 03/14/16 21:21:00 PERFORMANCE IMPROVEMENT MANAGER Special Instructions: Take in mornings with food or milk Start Date: 03/14/16 Stop Date: 03/23/16 Status: CompletedPriLOSEC 20 mg oral delayed release capsule 1 cap(s), Oral, Daily, # 30 cap(s), 0 Refill(s) Start Date: 07/09/13 Stop Date: 09/02/15 Status: CompletedProAir HFA 90 mcg/inh inhalation aerosol 2 puff(s), Inhale, QID, PRN as needed for wheezing, # 9 gm, 0 Refill(s), Start Date: 03/31/16 23:37:00 PERFORMANCE IMPROVEMENT MANAGER Start Date: 03/31/16 Stop Date: 04/05/16 Status: DiscontinuedPromethazine with Codeine 6.25 mg-10 mg/5 mL oral syrup 5 mL, Oral, q4hr, PRN for cough, X 7 days, # 210 mL, 0 Refill(s), Start Date: 17:06:00 PERFORMANCE IMPROVEMENT MANAGER Start Date: 03/23/16 Stop Date: 03/30/16 Status: CompletedRisperDAL 0.5 mg oral tablet 1 tab(s), Oral, qPM, # 30 tab(s), 0 Refill(s), Start Date: 09/06/15 16:10:00 CDT , Pharm[facility]: [facility] [id number] Start Date: 09/06/15 Stop Date: 01/15/16 Status: [...] tab(s), 0 Refill(s), Start Date: 03/23/16 17:05:00 PERFORMANCE IMPROVEMENT MANAGER Start Date: 03/23/16 Stop Date: 03/28/16 Status: CompletedTessalon 200 mg oral capsule 1 cap(s), Oral, TID, # 21 cap(s), 0 Refill(s), Start Date: 03/20/16 20:02:00 PERFORMANCE IMPROVEMENT MANAGER Start Date: 03/20/16 Stop Date: 04/05/16 Status: DiscontinuedtraMADol 50 mg oral tablet 1 tab(s), Oral, Daily, # 7 tab(s), 0 Refill(s), Start Date: 04/12/16 16:27:00 PERFORMANCE IMPROVEMENT MANAGER, Pharmacy: [facility] [id number] Start Date: 04/12/16 Stop Date: 04/24/16 Status: CompletedtraMADol 50 mg oral tablet 1 tab(s), Oral, Daily, # 14 tab(s), 0 Refill(s), Start Date: 04/24/16 9:12:27 PERFORMANCE IMPROVEMENT MANAGER, Pharmacy: [facility] [id number] Start Date: 04/24/16 Status: OrderedtraZODone 100 mg [...] tab(s), 0 Refill(s), Start Date: 03/31/16 23:19:00 PERFORMANCE IMPROVEMENT MANAGER Special Instructions: Do not work or drive with this medication Start Date: 03/31/16 Stop Date: 04/05/16 Status: DiscontinuedTylenol with Codeine #3 oral tablet 1 tab(s), Oral, q4hr, PRN for pain, # 60 tab(s), 1 Refill(s), Start Date: 13:47:00 PERFORMANCE IMPROVEMENT MANAGER, Pharmacy: [facility] [id number] Start Date: 04/05/16 Stop Date: 04/24/16 Status: CompletedTylenol with Codeine #3 oral tablet 1 tab(s), Oral, q6hr, PRN for pain, # 120 tab(s), 0 Refill(s), Start Date: 04/24 9:11:00 PERFORMANCE IMPROVEMENT MANAGER, Pharmacy: [facility] [id number] Start Date: 04/24/16 Stop Date: 05/31/16 Status: [...] CDT Start Date: 10/07/15 Status: Ordered Results Patient Viewable Results Most recent to oldest [Reference Range]: 1 Estimated Creatinine Clearance 177.35 mL/min (05/03/16 4:44 PM) Immunizations No data available for this section Procedures Procedure Date Related Diagnosis Body Site Manipulation of deviated nasal septum Social History No data available for this section Assessment and Plan No data available for this section
--- OUTSIDE RECORDS SUMMARY | 2016-05-28 00:20 | XMS REPORT | Summary of Care ---
:1975 Author Organization [facility] Address [address] [place] [address] Care Team Providers Name Role Phone Nuria Hodges Primary Care Physician Encounter Date(s): 04/24/16 - 04/24/16 [facility], [address] [place], [place] [address] Discharge Disposition: 01 Discharged to Home or Self Care Attending Physician: NIVIA Munoz Referring Physician: NIVIA Munoz Vital Signs Most recent to oldest [Reference Range]: 1 Peripheral Pulse Rate [60-100 bpm] 94 bpm (04/24/16 8:48 AM) SpO2 98 % (04/24/16 8:48 AM) SpO2 Location Right hand (04/24/16 8:48 AM) Blood Pressure [90-130/60-90 mmHg] 123/75mmHg (04/24/16 8:48 AM) Mean Arterial Pressure, Cuff 91 mmHg (04/24/16 8:48 AM) Height/Length Measured 178 cm (04/24/16 8:48 AM) Weight Dosing 123.00 kg1 (04/24/16 8:52 AM) Weight Measured 123 kg (04/24/16 8:48 AM) BSA Measured 2.38 m2 (04/24/16 8:48 AM) Body Mass Index Measured 38.82 kg/m2 (04/24/16 8:48 AM) 1Result Comment: This result was because the dosing weight was either not entered or it is>30 days old. 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 by Danielle Ralph Problem List Condition Effective Dates Status Health Status Informant Anxiety(Confirmed) Active Hip pain(Confirmed) Active Back pain(Confirmed) Active Back pain, chronic(Confirmed) Active Paranoid schizophrenia(Confirmed) Active Medication refill(Confirmed) Active Allergies, Adverse Reactions, Alerts Substance Reaction Severity Status propofol Severe Active Medications albuterol HFA 2 puff(s), 0 Refill(s), Start Date: 03/16/16 11:56:00 DI[employer]ATING TRANSCRIBING MACHINE SERVICER Start Date: 03/16/16 Stop Date: 04/05/16 Status: Discontinuedalbuterol HFA 0 Refill(s), Start Date: 04/05/16 15:21:00 DI[employer]ATING TRANSCRIBING MACHINE SERVICER Start Date: 04/05/16 Status: Orderedaloe vera topical [...] tab(s), 0 Refill(s), Start Date: 03/23/16 17:05:00 DI[employer]ATING TRANSCRIBING MACHINE SERVICER Start Date: 03/23/16 Stop Date: 03/28/16 Status: [...] tab(s), 0 Refill(s), Start Date: 03/14/16 21:21:00 [employer]ATING TRANSCRIBING MACHINE SERVICER Start Date: 03/14/16 Stop Date: 03/23/16 Status: Completedibuprofen 600 mg oral tablet 1 tab(s), Oral, TID, PRN for pain, # 30 tab(s), 0 Refill(s) Start Date: 09/14/13 Stop Date: 09/02/15 Status: Completedibuprofen 800 mg oral tablet 1 tab(s), Oral, TID, PRN for pain, # 30 tab(s), 0 Refill(s), Start Date: 20:01:00 DI[employer]ATING TRANSCRIBING MACHINE SERVICER Start Date: 03/20/16 Stop Date: 04/05/16 Status: Completedibuprofen 800 mg oral tablet 1 tab(s), Oral, TID, PRN for pain, # 30 tab(s), 0 Refill(s), Start Date: 13:47:11 DICTATING TRANSCRIBING MACHINE SERVICER, Pharmacy: [facility] [id number] Start Date: 04/05/16 Status: OrderedKlonoPIN 1 mg [...] 0 Refill(s), Start Date: 01/15/16 15:59:00 CDT Start Date: 01/15/16 Stop Date: 02/13/16 Status: CompletedLORazepam 1 mg oral tablet 1 tab(s), Oral, QID, May take additional 2 tablets daily as needed, max of 6 tabletes per day. last filled 12/18/2015, 0 Refill(s), Start Date: 01/15/16 15:59 :00 CDT Start Date: 01/15/16 Status: OrderedMirapex 1.5 mg oral tablet 1 tab(s), Oral, Daily, at 2000 every night, 0 Refill(s), Start Date: 09/02/15 11 :37:00 CDT Start Date: 09/02/15 Stop Date: 09/06/15 [...] tab(s), 1 Refill(s), Start Date: 03/16/16 12:20:00 DI[employer]ATING TRANSCRIBING MACHINE SERVICER , Pharmacy: [facility] [id number] Start Date: 03/16/16 Stop Date: 04/05/16 Status: DiscontinuedpredniSONE 50 mg oral tablet 1 tab(s), Oral, Daily, Take in mornings with food or milk, # 7 tab(s), 0 Refill (s), Start Date: 03/14/16 21:21:00 DI[employer]ATING TRANSCRIBING MACHINE SERVICER Start Date: 03/14/16 Stop Date: 03/23/16 Status: CompletedPriLOSEC 20 mg oral delayed release capsule 1 cap(s), Oral, Daily, # 30 cap(s), 0 Refill(s) Start Date: 07/09/13 Stop Date: 09/02/15 Status: CompletedProAir HFA 90 mcg/inh inhalation aerosol 2 puff(s), Inhale, QID, PRN as needed for wheezing, # 9 gm, 0 Refill(s), Start Date: 03/31/16 23:37:00 DICTATING TRANSCRIBING MACHINE SERVICER Start Date: 03/31/16 Stop Date: 04/05/16 Status: DiscontinuedPromethazine with Codeine 6.25 mg-10 mg/5 mL oral syrup 5 mL, Oral, q4hr, PRN for cough, X 7 days, # 210 mL, 0 Refill(s), Start Date: 17:06:00 DI[employer]ATING TRANSCRIBING MACHINE SERVICER Start Date: 03/23/16 Stop Date: 03/30/16 Status: CompletedRisperDAL 0.5 mg oral tablet 1 tab(s), Oral, qPM, # 30 tab(s), 0 Refill(s), Start Date: 09/06/15 16:10:00 CDT , Pharmacy: [facility] [id number] Start Date: 09/06/15 Stop Date: 01/15/16 Status: [...] tab(s), 0 Refill(s), Start Date: 03/23/16 17:05:00 DICTATING TRANSCRIBING MACHINE SERVICER Start Date: 03/23/16 Stop Date: 03/28/16 Status: CompletedTessalon 200 mg oral capsule 1 cap(s), Oral, TID, # 21 cap(s), 0 Refill(s), Start Date: 03/20/16 20:02:00 DICTATING TRANSCRIBING MACHINE SERVICER Start Date: 03/20/16 Stop Date: 04/05/16 Status: DiscontinuedtraMADol 50 mg oral tablet 1 tab(s), Oral, Daily, # 7 tab(s), 0 Refill(s), Start Date: 04/12/16 16:27:00 DICTATING TRANSCRIBING MACHINE SERVICER, Pharmacy: [facility] [id number] Start Date: 04/12/16 Stop Date: 04/24/16 Status: CompletedtraMADol 50 mg oral tablet 1 tab(s), Oral, Daily, # 14 tab(s), 0 Refill(s), Start Date: 04/24/16 9:12:27 DICTATING TRANSCRIBING MACHINE SERVICER, Pharmacy: [facility] [id number] Start Date: 04/24/16 Status: OrderedtraZODone 100 mg oral tablet 1 tab(s), Oral, TID, # 90 tab(s), 0 Refill(s) Start Date: 07/09/13 Stop Date: 09/14/13 Status: DiscontinuedtraZODone 50 mg oral tablet 1 tab(s), Oral, HS, at 2000 every night, # 30 tab(s), 0 Refill(s), Start Date: 09/02/15 11:38:00 CDT Start Date: 09/02/15 Stop Date: 01/15/16 Status: CompletedTylenol with Codeine #3 oral tablet 1 tab(s), Oral, q4hr, PRN cough and congestion, Do not work or drive with this medication, X 7 days, # 8 tab(s), 0 Refill(s), Start Date: 03/31/16 23:19:00 DICTATING TRANSCRIBING MACHINE SERVICER Start Date: 03/31/16 Stop Date: 04/05/16 Status: DiscontinuedTylenol with Codeine #3 oral tablet 1 tab(s), Oral, q4hr, PRN for pain, # 60 tab(s), 1 Refill(s), Start Date: 13:47:00 DICTATING TRANSCRIBING MACHINE SERVICER, Pharmacy: [facility] [id number] Start Date: 04/05/16 Stop Date: 04/24/16 Status: CompletedTylenol with Codeine #3 oral tablet 1 tab(s), Oral, q6hr, PRN for pain, # 120 tab(s), 0 Refill(s), Start Date: 04/24 9:11:00 DICTATING TRANSCRIBING MACHINE SERVICER, Pharmacy: [facility] [id number] Start Date: 04/24/16 Stop Date: 05/31/16 Status: [...]
[2016-05-28 00:48] VITALS: BP 115/76
--- NOTE | 2016-05-28 00:52 | ERNOTE ---
Date of Service: 05/28/16 Time Seen by Provider: 05/27/16 23:24 Stated Complaint: URI Presenting Symptoms:: cough Source: patient Exam Limitations: no limitations Immunizations: IMMUNIZATION HX Immunizations Up to Date No History of Influenza Vaccine No Hx Pneumococcal Vaccination No Allergies/Adverse Reactions: Allergies propofol Allergy (Verified 02/13/16 20:50) Home Medications: HOME MEDICATIONS Lorazepam [Ativan] 1 mg PO QID PRN 01/19/16 [Last Taken Unknown] Albuterol Sulfate [Proair Hfa] 2 puff IH QID PRN #1 inhaler 02/13/16 [Last Taken Unknown] Zolpidem Tartrate [Ambien] 10 mg PO HS 02/13/16 [Last Taken Unknown] Albuterol Sulfate/Ipratropium [Duoneb 2.5-0.5MG/3ML Soln] 3 ml IH QID #20 vial 05/28/16 [Last Taken Unknown] Benzonatate [Tessalon Perle] 100 mg PO Q8H #15 capsule 05/28/16 [Last Taken Unknown] - History of Present Ilness Timing: intermittent Severity: mild Frequency/Possible Cause: Reports: occasional episodes Modifying Factors - Improves: Reports: albuterol, other - Codeine Modifying Factors - Worsens: Reports: coughing Associated Symptoms: Reports: denies symptoms Prior Treatment: Reports: recently seen Review of Systems - Review of Systems Constitutional: Present: no symptoms reported. Absent: fever, chills, fatigue, malaise EYE: Present: no symptoms reported ENT: Present: no symptoms reported Respiratory: Present: cough Cardiology: Present: no symptoms reported Gastrointestinal/Abdominal: Present: no symptoms reported Genitourinary: Present: no symptoms reported Musculoskeletal: Present: no symptoms reported Skin: Present: no symptoms reported Neurological: Present: no symptoms reported Endocrine: Present: no symptoms reported Hematologic/Lymphatic: Present: no symptoms reported Psych: Present: no symptoms reported All Other Systems: All systems neg except as marked - Patient's Past Medical History Patient History - Medical: Anxiety, Bipolar, Other Patient History - Cardiac/Respiratory: Bronchitis Patient History - Cancer: No Hx of Cancer Patient History - Surgical Procedures: No surgical history Patient History - Other: None - Social History Living Situations: alone Abuse History: No History of abuse Psych History: Hx of Anxiety, Hx of Depression Smoking Status: Former smoker Have you smoked in the past 12 months: No Do you dip or chew tobacco: No Alcohol Use: none Drug Use: none - Immunizations Immunizations Up to Date: No Hx Pneumococcal Vaccination: No History of Influenza Vaccine: No Physical Exam - Physical Exam General Appearance: Present: wd/wn, alert, no apparent distress Eye Exam: Normal inspection: bilateral Ears, Nose, Throat: Present: normal ENT inspection, hearing grossly normal Neck: Present: normal inspection, nontender Respiratory: Present: no respiratory distress, normal breath sounds, no accessory muscle use, chest nontender, lungs clear, expiration (prolonged) Cardiovascular/Chest: Present: regular rate, rhythm, no murmur, normal peripheral pulses Gastrointestinal/Abdominal: Present: normal bowel sounds, nontender, nondistended, soft, no organomegaly Back Exam: Present: normal inspection, normal range of motion, no CVA tenderness , no vertebral tenderness Extremity Exam: Present: normal inspection, non-tender, no edema, normal range of motion Neurological Exam: Present: alert, oriented, normal mood/affect, no motor/ sensory deficits Skin Exam: Present: normal color, warm/dry Lymphatic Exam: Present: no adenopathy ED Progress - Date and Time Seen: Date and Time: 05/28/16 00:43 Patient with no distress. Patient with no pneumonia on x-ray. Patient has been given Tx and has improved. - Results and Orders Patient's Lab Results:: I have reviewed the patient's lab results. Results and Orders: Negative Flu - Vital Signs Patient's Vital Signs:: I have reviewed the patient's vital signs. Vital Signs: Vital Signs 05/27/16 05/27/16 23:29 23:46 Temperature 36.5 C Pulse Rate 98 83 Respiratory 20 18 Rate Blood Pressure 155/85 O2 Sat by Pulse 98 98 Oximetry - X-Ray X-Ray #1 X-Ray: chest Interpretation: Interp. by me X-ray Comments: No infiltrates and no consolidates - Progress/Reassessment Chief Complaint: Upper Respiratory Symptoms Progress:: Improved - Transfer of Care Expected Disposition: Discharge Plan - Plan Plan: Patient is to get follow up with his Primary Care Provider. Departure - Departure Clinical Impression: Coughing, Upper respiratory infection, viral Disposition: Home self-care Condition: Stable Instructions: Upper Respiratory Infection, Adult, Euph-[id number], Cough, Adult, [id number] Prescriptions: Albuterol Sulfate/Ipratropium [Duoneb 2.5-0.5MG/3ML Soln] 3 ml IH QID #20 vial Benzonatate [Tessalon Perle] 100 mg PO Q8H #15 capsule
== END 2016-05-28 00:45 | disposition home or self-care (01) ==
LOC: ER 23:17
DX: J06.9 Acute upper respiratory infection, unspecified (principal); R05 Cough; F41.8 Other specified anxiety disorders

== ENCOUNTER 2016-06-06 00:04 | Emergency (ER) | payer MEDICARE, MEDICAID ==
[2016-06-06 00:11] VITALS: BP 133/75
--- NOTE | 2016-06-06 00:35 | ERNOTE ---
Medical Problem HPI - General Chief Complaint: General Assessment Time Seen by Provider: 06/06/16 00:15 Source: patient Exam Limitations: clinical condition - Immun/Allergies/Home Medications Immunizations: IMMUNIZATION HX Immunizations Up to Date Yes History of Influenza Vaccine No Hx Pneumococcal Vaccination No Allergies/Adverse Reactions: Allergies propofol Allergy (Verified 02/13/16 20:50) Home Medications: HOME MEDICATIONS Lorazepam [Ativan] 1 mg PO QID PRN 01/19/16 [Last Taken Unknown] Albuterol Sulfate [Proair Hfa] 2 puff IH QID PRN #1 inhaler 02/13/16 [Last Taken Unknown] Zolpidem Tartrate [Ambien] 10 mg PO HS 02/13/16 [Last Taken Unknown] Albuterol Sulfate/Ipratropium [Duoneb 2.5-0.5MG/3ML Soln] 3 ml IH QID #20 vial 05/28/16 [Last Taken Unknown] Benzonatate [Tessalon Perle] 100 mg PO Q8H #15 capsule 05/28/16 [Last Taken Unknown] - History of Present History Narrative: Pt states that he has had a cough for a few weeks, he was seen here and given rx for both albuterol and a nebulizer. He states that there was complication with the nebulizer rx and his PCP wrote another. For this reason he just started on his albuterol today and that has greatly helped his cough. Pt has much difficulty staying on subject with very tangential thinking. What he really wants is to have a doctor's excuse for the class he missed this afternoon. Timing: other - improving Severity: moderate Modifying Factors - (Improves): Present: medication - picked up albuterol and nebulizer today Review of Systems - Narrative Narrative: Pt expounded upon his "ghost pain", his non-addiction to benzodiazepines and narcotics but then describes in detail addictions to both substances and the large amounts that other hospitals have given him. - Review of Systems Constitutional: Present: See HPI, recent illness - Patient's Past Medical History Patient History - Medical: Anxiety, Bipolar, Other Patient History - Cardiac/Respiratory: Bronchitis Patient History - Cancer: No Hx of Cancer Patient History - Surgical Procedures: No surgical history Patient History - Other: None - Social History Living Situations: home Abuse History: No History of abuse Psych History: Hx of Anxiety, Hx of Depression Smoking Status: Never smoker Patient requests Smoking Cessation Consult: No Initiate information on Smoking Cessation: No Alcohol Use: none Drug Use: none - Immunizations Immunizations Up to Date: Yes Hx Pneumococcal Vaccination: No History of Influenza Vaccine: No Physical Exam - Physical Exam General Appearance: Present: wd/wn, alert, no apparent distress Ears, Nose, Throat: Present: normal ENT inspection Neck: Present: normal inspection Respiratory: Present: no respiratory distress, normal breath sounds, no accessory muscle use, chest nontender, lungs clear Cardiovascular/Chest: Present: regular rate, rhythm, no murmur, normal peripheral pulses Neurological Exam: Present: alert, oriented, other - tangential thought processes, pressured speech. Skin Exam: Present: normal color, warm/dry ED Progress - Vital Signs Vital Signs: Vital Signs 06/06/16 00:09 Temperature 37.5 C Pulse Rate 96 Respiratory 20 Rate Blood Pressure 133/75 O2 Sat by Pulse 96 Oximetry - Progress/Reassessment Chief Complaint: General Assessment Progress Note-Subjective: given excuse for school this afternoon Departure - Departure Clinical Impression: Bronchitis Ventral hernia Qualifiers: Obstruction and gangrene presence: without obstruction or gangrene Qualified Code(s): K43.9 - Ventral hernia without obstruction or gangrene Disposition: Home Follow Up Needed Condition: Good Instructions: Acute Bronchitis Additional Instructions: see your regular doctor as needed for symptoms
--- OUTSIDE RECORDS SUMMARY | 2016-06-06 00:38 | XMS REPORT | Continuity of Care Document ---
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 Pulse 104 04/15/2016 5:42 PM MANDOLIN REPAIRER Temperature 36.9 C (98.4 F) 04/15/2016 5:42 PM MANDOLIN REPAIRER Respiratory Rate 20 04/15/2016 5:42 PM MANDOLIN REPAIRER Height 1.765 m (5' 9.49") 11/18/2013 12:32 AM CDT Weight 122.879 kg (270 lb 14.4 oz) 04/08/2014 8:43 AM MANDOLIN REPAIRER Body Mass Index 39.44 04/08/2014 8:43 AM MANDOLIN REPAIRER Oxygen Saturation 95% 04/15/2016 5:42 PM MANDOLIN REPAIRER Plan of Care Health Maintenance Due Date Last Done Comments Hepatitis B Vaccine (1 of 3 - Primary Series) 1975 Tdap Vaccine 1985 MMR Vaccine 1992 Td Vaccine 1992 Influenza Vaccine: Seasonal (#1) 11/01/2015 Lipid Disorder Screening 05/13/2018 05/13/2013 Results from Last 3 Months Not on file
--- OUTSIDE RECORDS SUMMARY | 2016-06-06 00:40 | XMS REPORT | Summary of Care ---
:1975 Author Organization [facility] Address [address] [place] [address]- Care Team Providers Name Role Phone Physician, Primary Care Primary Care Physician Unavailable Encounter Date(s): 05/27/16 - 05/27/[address] [address]- [facility] Discharge Diagnosis: Cough Discharge Disposition: 01 Discharged to Home or Self Care Attending Physician: QIAN Hernández Admitting Physician: QIAN Hernández Vital Signs Most recent to oldest [Reference Range]: 1 Temperature Temporal Artery [36.0-38.0 DegC] 36.9 DegC (05/27/16 10:02 PM) Heart Rate Monitored [60-100 bpm] 97 bpm (05/27/16 10:02 PM) Respiratory Rate [12-20 br/min] 20 br/min (05/27/16 10:02 PM) SpO2 [90-100 %] 98 % (05/27/16 10:02 PM) Blood Pressure [90-130/60-90 mmHg] 158/72mmHg *HI* (05/27/16 10:02 PM) Most recent to oldest [Reference Range]: 1 Weight Estimated 130 kg (05/27/16 10:02 PM) Weight Dosing 130.00 kg1 (05/27/16 10:07 PM) 1Result Comment: This result was because the dosing weight was either not entered or it is>30 days old. 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 Problem List Condition Effective Dates Status Health Status Informant Anxiety(Confirmed) Active Hip pain(Confirmed) Active Back pain(Confirmed) Active Back pain, chronic(Confirmed) Active Paranoid schizophrenia(Confirmed) Active Medication refill(Confirmed) Active Allergies, Adverse Reactions, Alerts Substance Reaction Severity Status propofol Severe Active Medications albuterol HFA 2 puff(s), 0 Refill(s), Start Date: 03/16/16 11:56:00 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 Start Date: 03/16/16 Stop Date: 04/05/16 Status: Discontinuedalbuterol HFA 2 puff(s), Inhale, QID, 0 Refill(s), Start Date: 04/05/16 15:21:00 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 Start Date: 04/05/16 Status: Orderedaloe vera topical [...] tab(s), 0 Refill(s), Start Date: 03/23/16 17:05:00 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[employer] Special Instructions: as directed on package labeling [...] tab(s), 0 Refill(s), Start Date: 03/14/16 21:21:00 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 Start Date: 03/14/16 Stop Date: 03/23/16 Status: Completedibuprofen 600 mg oral tablet 1 tab(s), Oral, TID, PRN for pain, # 30 tab(s), 0 Refill(s) Start Date: 09/14/13 Stop Date: 09/02/15 Status: Completedibuprofen 800 mg oral tablet 1 tab(s), Oral, TID, PRN for pain, # 30 tab(s), 0 Refill(s), Start Date: 20:01:00 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 Start Date: 03/20/16 Stop Date: 04/05/16 Status: Completedibuprofen 800 mg oral tablet 1 tab(s), Oral, TID, PRN for pain, # 30 tab(s), 0 Refill(s), Start Date: 13:47:11 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, Pharmacy: [facility] [id number] Start Date: 04/05/16 Status: OrderedKlonoPIN 1 mg [...] tab(s), 1 Refill(s), Start Date: 03/16/16 12:20:00 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 , [facility] [id number] Start Date: 03/16/16 Stop Date: 04/05/16 Status: DiscontinuedpredniSONE 50 mg oral tablet 1 tab(s), Oral, Daily, Take in mornings with food or milk, # 7 tab(s), 0 Refill (s), Start Date: 03/14/16 21:21:00 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 Special Instructions: Take in mornings with food or milk Start Date: 03/14/16 Stop Date: 03/23/16 Status: CompletedPriLOSEC 20 mg oral delayed release capsule 1 cap(s), Oral, Daily, # 30 cap(s), 0 Refill(s) Start Date: 07/09/13 Stop Date: 09/02/15 Status: CompletedProAir HFA 90 mcg/inh inhalation aerosol 2 puff(s), Inhale, QID, PRN as needed for wheezing, # 9 gm, 0 Refill(s), Start Date: 03/31/16 23:37:00 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 Start Date: 03/31/16 Stop Date: 04/05/16 Status: DiscontinuedPromethazine with Codeine 6.25 mg-10 mg/5 mL oral syrup 5 mL, Oral, q4hr, PRN for cough, X 7 days, # 210 mL, 0 Refill(s), Start Date: 17:06:00 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 Start Date: 03/23/16 Stop Date: 03/30/16 Status: CompletedRisperDAL 0.5 mg oral tablet 1 tab(s), Oral, qPM, # 30 tab(s), 0 Refill(s), Start Date: 09/06/15 16:10:00 CDT , Pharmacy: [facility] [id number] Start Date: 09/06/15 Stop Date: 01/15/16 Status: [...] tab(s), 0 Refill(s), Start Date: 03/23/16 17:05:00 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 Start Date: 03/23/16 Stop Date: 03/28/16 Status: CompletedTessalon 200 mg oral capsule 1 cap(s), Oral, TID, # 21 cap(s), 0 Refill(s), Start Date: 03/20/16 20:02:00 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 Start Date: 03/20/16 Stop Date: 04/05/16 Status: DiscontinuedtraMADol 50 mg oral tablet 1 tab(s), Oral, Daily, # 7 tab(s), 0 Refill(s), Start Date: 04/12/16 16:27:00 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, Pharmacy: [facility] [id number] Start Date: 04/12/16 Stop Date: 04/24/16 Status: CompletedtraMADol 50 mg oral tablet 1 tab(s), Oral, Daily, # 14 tab(s), 0 Refill(s), Start Date: 04/24/16 9:12:27 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, Pharmacy: [facility] [id number] Start Date: 04/24/16 Status: OrderedtraZODone 100 mg [...] tab(s), 0 Refill(s), Start Date: 03/31/16 23:19:00 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 Special Instructions: Do not work or drive with this medication Start Date: 03/31/16 Stop Date: 04/05/16 Status: DiscontinuedTylenol with Codeine #3 oral tablet 1 tab(s), Oral, q4hr, PRN for pain, # 60 tab(s), 1 Refill(s), Start Date: 13:47:00 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, Pharmacy: [facility] [id number] Start Date: 04/05/16 Stop Date: 04/24/16 Status: CompletedTylenol with Codeine #3 oral tablet 1 tab(s), Oral, q6hr, PRN for pain, # 120 tab(s), 0 Refill(s), Start Date: 04/24 9:11:00 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, Pharmacy: [facility] [id number] Start Date: 04/24/16 Stop Date: 05/31/16 Status: [...] oldest [Reference Range]: 1 Estimated Creatinine Clearance 183.16 mL/min (05/27/16 10:07 PM) Immunizations No data available for this section Procedures Procedure Date Related Diagnosis Body Site Manipulation of deviated nasal septum Social History No data available for this section Assessment and Plan No data available for this section
== END 2016-06-06 00:38 | disposition home or self-care (01) ==
LOC: ER 00:04
DX: J20.8 Acute bronchitis due to other specified organisms (principal); K43.9 Ventral hernia without obstruction or gangrene; F41.9 Anxiety disorder, unspecified

== ENCOUNTER 2016-09-19 01:29 | Emergency (ER) | payer MEDICARE, MEDICAID ==
[2016-09-19 01:53] VITALS: BP 145/74
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
== END 2016-09-19 02:26 | disposition home or self-care (01) ==
LOC: ER 01:29
DX: S70.01XS Contusion of right hip, sequela (principal); F41.9 Anxiety disorder, unspecified; F31.70 Bipolar disorder, currently in remission, most recent episode unspecified; Z72.0 Tobacco use